=== PATIENT | female | born 1985 | race Asian ===

== ENCOUNTER 2021-08-24 20:33 | Emergency (ER) | payer OTHER ==
[2021-08-24 22:09] LABS: BASOPHILS % (AUTO) 0.5 %; EOSINOPHILS # (AUTO) 0.1 10^3/uL (0.0-0.7); EOSINOPHILS % (AUTO) 1.7 %; HCT - HEMATOCRIT 41.3 % (37.0-47.0); HGB - HEMOGLOBIN 13.3 g/dL (12.0-16.0); LYMPHOCYTES # (AUTO) 1.6 10^3/uL (1.5-3.5); LYMPHOCYTES % (AUTO) 25.4 %; MEAN CORPUSCULAR HEMOGLOBIN 28.7 pg (27.0-31.0); MEAN CORPUSCULAR HGB CONC 32.2 g/dL (32.0-36.0); MEAN PLATELET VOLUME 10.6 fL (7.9-10.8); MONOCYTES # (AUTO) 0.6 10^3/uL (0.0-1.0); NEUTROPHILS % (AUTO) 63.2 %; PLT - PLATELET COUNT 283 10^3/uL (130-450); RED BLOOD COUNT 4.64 10^6/uL (4.20-5.40); RED CELL DISTRIBUTION WIDTH 13.3 % (12.0-15.0); WHITE BLOOD COUNT 6.3 x10^3/uL (4.8-10.8)
[2021-08-24 22:20] LABS: BILIRUBIN,TOTAL 0.7 mg/dL (0.2-1.0); CALCIUM 8.8 mg/dL (8.5-10.3); CREATININE 0.6 mg/dL (0.4-1.0); POTASSIUM 3.1 mmol/L (3.5-5.0); TOTAL PROTEIN 7.9 g/dL (6.7-8.2)
--- NOTE | 2021-08-24 22:38 | XRAY Report ---
PROCEDURE: Chest 1 View X-Ray INDICATIONS: epigastric pain, bloating, nausea TECHNIQUE: One view of the chest was acquired. COMPARISON: None. FINDINGS: Surgical changes and devices: None. Lungs and pleura: No pleural effusions or pneumothorax. Lungs are clear. Mediastinum: Mediastinal contours appear normal. Heart size is normal. Bones and chest wall: No suspicious bony lesions. Overlying soft tissues appear unremarkable. No f ree air is seen under the diaphragm. IMPRESSION: No acute cardiopulmonary abnormality. Reviewed by: Peewee Alvarez MD on 08/24/2021 10:37 PM PDT Approved by: Peewee Alvarez MD on 08/24/2021 10:37 PM PDT Station ID: [id number]
--- NOTE | 2021-08-24 22:43 | ED Physician Documentation ---
History of Present Illness - Stated complaint Stated Complaint: DIZZINESS/NAUSEA - Chief complaint Chief Complaint: Abd Pain - History obtained from History obtained from: Patient - Additonal information Additional information: 36-year-old woman presents with epigastric discomfort, bloating, belching, and nausea for the past week associated with food. She also states that she has been long hours for the [employer] and worked on midnight yesterday. She became dizzy today when lying down and that is why she came to the emergency department. Denies chest pain, shortness of breath, cough, vomiting, diarrhea, bloody stool, urinary sx. Review of Systems Ten Systems: 10 systems reviewed and negative Constitutional: denies: Fever, Chills Cardiac: denies: Chest pain / pressure Respiratory: denies: Dyspnea GI: reports: Abdominal Pain, Nausea. denies: Vomiting, Diarrhea : denies: Dysuria PD PAST MEDICAL HISTORY - Present Medications Home Medications: Ambulatory Orders Medication Instructions Recorded Confirmed Ondansetron Odt [Zofran Odt] 4 mg TL Q6H PRN #10 tablet 08/24/21 - Allergies Allergies/Adverse Reactions: Allergies Allergy/AdvReac Type Severity Reaction Status Date / Time No Known Drug Allergies Allergy Verified 08/24/21 20:35 PD ED PE NORMAL - Vitals Vital signs reviewed: Yes - General General: Alert and oriented X 3, No acute distress, Well developed/nourished - HEENT HEENT: Atraumatic, PERRL, EOMI - Neck Neck: Supple, no meningeal sign - Cardiac Cardiac: RRR - Respiratory Respiratory: No respiratory distress, Clear bilaterally - Abdomen Abdomen: Non tender, Non distended - Derm Derm: Normal color, Warm and dry - Extremities Extremities: No deformity - Neuro Neuro: Alert and oriented X 3 - Psych Psych: Normal mood, Normal affect Results - Vitals Vitals: Vital Signs - 24 hr 08/24/21 08/24/21 20:33 22:16 Temperature 37 C 37 C Heart Rate 82 82 Respiratory 16 16 Rate Blood Pressure 137/98 H 137/98 H O2 Saturation 98 98 Oxygen O2 Source Room air - EKG (time done) 2218 Rate: Rate (enter#) (69) Rhythm: NSR Dixon: Normal Intervals: Normal GA QRS: Normal Ischemia: Normal ST segments - Labs Labs: Laboratory Tests 08/24/21 08/24/21 21:54 21:54 WBC 6.3 RBC 4.64 Hgb 13.3 Hct 41.3 MCV 89.0 MCH 28.7 MCHC 32.2 RDW 13.3 Plt Count 283 MPV 10.6 Neut # (Auto) 4.0 Lymph # (Auto) 1.6 Union # (Auto) 0.6 Eos # (Auto) 0.1 Baso # (Auto) 0.0 Absolute Nucleated RBC 0.00 Nucleated RBC % 0.0 Sodium 136 Potassium 3.1 L Chloride 101 Carbon Dioxide 28 Anion Gap 7.0 BUN 13 Creatinine 0.6 Estimated GFR (MDRD) 112 Glucose 120 H Calcium 8.8 Total Bilirubin 0.7 AST 18 ALT 18 Alkaline Phosphatase 54 Total Protein 7.9 Albumin 4.0 Globulin 3.9 Albumin/Globulin Ratio 1.0 Lipase 31 PD MEDICAL DECISION MAKING - ED course ED course: 28-year-old woman presents with some GI symptoms and some dizziness today that have resolved for the most part. Her work-up is unremarkable with exception of some mild hypokalemia. Discussed with the patient to increase potassium intake in her diet and to follow-up with [facility]. She may need further evaluation by gastroenterology. Return precautions given. Departure - Departure Disposition: 01 Home, Self Care Clinical Impression: Dizziness, Nausea, Bloating Condition: Good Instructions: ED Dizziness UKO Prescriptions: Ondansetron Odt [Zofran Odt] 4 mg TL Q6H PRN #10 tablet PRN Reason: Nausea / Vomiting Comments: You were seen in the emergency department for stomach discomfort, bloating, belching, nausea, and dizziness. Patient got 8 hours of sleep daily. Please talk to your doctor anything medical about modification of your duty hours if you are unable to sleep enough at nighttime. Please also talk to your doctor about your low potassium level which came back at 3.1 today. Eat foods high in potassium like green leafy vegetables and avocados. I am prescribing Zofran for nausea. You should also talk to your doctor about your stomach bloating and belching, since it may be a sign you need to speak with a specialist like a box car washer. Your lab work did not show any emergent findings, but you Should return to the emergency department immediately if you have any new or worsening symptoms or other concerns. Follow-up with [facility]. Forms: Activity restrictions
[2021-08-24] MEDS ORDERED: FAMOTIDINE 20 MG/2 ML VIAL IVP STA (23:07)
[2021-08-24] MEDS ORDERED: ONDANSETRON 4 MG/2 ML VIAL IVP STA (23:07)
[2021-08-24 23:29] VITALS: BP 107/78
== END 2021-08-24 23:48 | disposition home or self-care (01) ==
LOC: ED 20:33
DX: R42 Dizziness and giddiness (principal); R11.0 Nausea; R14.0 Abdominal distension (gaseous); E87.6 Hypokalemia
CPT/HCPCS: 36415; 80053; 83690; 85025; 93005; 96374; 96375; 99284